=== PATIENT | male | born 1950 | race Two or more races ===

== ENCOUNTER 2024-12-28 07:31 | Outpatient (CLI) | payer OTHER | END 2024-12-28 07:46 | disposition home or self-care (01) | LOC: TOM 07:31 | PROVIDERS: ATTEND Urology | DX: C61 Malignant neoplasm of prostate (principal) ==

== ENCOUNTER → 2025-01-11 07:08 | Outpatient (CLI) | payer OTHER | END | disposition home or self-care (01) | LOC: NUCLEAR 06:00 | PROVIDERS: ATTEND Urology | DX: C61 Malignant neoplasm of prostate (principal) ==

== ENCOUNTER 2025-04-16 17:35 | Emergency (ER) | payer OTHER ==
[~2025-04-16] VITALS: Ht 172.7 cm; Wt 80.3 kg
[2025-04-16 17:44] VITALS: O2SAT 96
[2025-04-16] MEDS ORDERED: TAMS0.4C PO (17:53)
[2025-04-16] MEDS ORDERED: TRELSTAR11.25 M1 (17:54)
[2025-04-16] MEDS ORDERED: ADCIRCA20 MG PO (17:54)
[2025-04-16] MEDS ORDERED: XTANDI80 MG PO (17:54)
[2025-04-16] MEDS ORDERED: CASODEX50 MG PO (17:54)
[2025-04-16] MEDS ORDERED: LABETALOL HCL 200 MG/40 ML VIAL IV ONE (19:45)
[2025-04-16 20:26] LABS: BASO % 1.0 % (0.1-1.2); EOS # 0.24 (0.04-0.54); EOS % 3.9 % (0.7-7.0); LYMPH # 1.85 (1.18-3.74); LYMPH % 30.0 % (19.3-53.1); MEAN PLATELET VOLUME 10.50 fl (9.4-12.4); MONO # 0.42 (0.24-0.82); MONO % 6.8 % (4.7-12.5); NEUT # 3.59 (1.56-6.13); NEUT % 58.1 % (34.0-71.1); RED CELL DISTRIBUTION WIDTH 13.2 % (11.6-14.4)
[2025-04-16] MEDS ORDERED: hydrALAZINE HCL 20 MG VIAL IV ONE ×2 (20:45→21:00)
[2025-04-16 20:49] LABS: ALT/SGPT 34.0 U/L (12-78); AST/SGOT 21.0 U/L (15-37); BILIRUBIN TOTAL 0.74 mg/dL (0.3-1.2); BUN CREA RATIO 31.0 (7.0-25.0); CREATININE SERUM 0.7 mg/dL (0.70-1.30); GFR 110.24; GLOBULINA 2.8 G/DL (2.4-3.5); GLUCOSE FASTING 96.0 mg/dL (65-100); OSMOLALITY SERUM 283.0 MOSM/KG (275-295)
[2025-04-16] MEDS ORDERED: hydrALAZINE HCL 20 MG VIAL ONE (20:51)
[2025-04-16 22:43] VITALS: BP 150/76
[2025-04-16] MEDS ORDERED: CLONIDINE HCL 0.1 MG TABLET PO ONE ×2 (23:15→23:17)
== END 2025-04-16 23:38 | disposition home or self-care (01) ==
LOC: ER 17:35
PROVIDERS: Preventive Medicine Public Health & General Preventive Medicine
DX: I10 Essential (primary) hypertension (principal); Z85.46 Personal history of malignant neoplasm of prostate